=== PATIENT | female | born 1990 | race Hispanic/Latino ===

== ENCOUNTER 2022-02-15 14:03 | Emergency (ER) | payer SELFPAY ==
[2022-02-15] MEDS ORDERED: dexAMETHasone 10 MG/ML VIAL ONE (14:38)
[2022-02-15] MEDS ORDERED: DIPHENHYDRAMINE 50 MG/ML VIAL ONE (14:38)
[2022-02-15] MEDS ORDERED: NA CHLORIDE 0.9% 1,000 ML ONE (14:39)
[2022-02-15] MEDS ORDERED: FAMOTIDINE 20 MG/2 ML VIAL IV ONE (14:39)
--- NOTE | 2022-02-15 16:15 | EDPHYS ---
Physician Documentation [facility] Name: Brian Hamilton Age: 31 yrs Sex: Female : 1990 Arrival Date: 02/15/2022 Time: 14:04 Bed 9 Private MD: ED Physician Dillon Kwon HPI: 02/15 14:24 This 31 yrs old Female presents to ER via Unassigned with complaints of Rash, jmm Allergic Reaction. 14:24 Onset: The symptoms/episode began/occurred gradually. Associated signs and symptoms: jmm Pertinent negatives: swelling of lips, swelling of throat, swelling of tongue. This is a 31 year old female with no chronic medical conditions that presents to the ED with complaints of rash to her legs and face beginning approx 3 days ago. Patient states she was scraped by a plant while gardening 3 days ago. States she tried a new detergent for her bedding. Developed a rash to her legs and face the next day with clear drainage from the areas of her legs bilaterally. Denies pain. Denies swelling to her throat. Denies vomiting. . 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 - Social history:: Smoking status: Patient denies any tobacco usage or history of. ROS: 14:24 Constitutional: Negative for chills, fatigue, fever. jmm 14:24 Respiratory: Negative for shortness of breath. 14:24 Skin: Positive for rash. 14:24 All other systems are negative. Exam: 14:24 Constitutional: This is a well developed, well nourished patient who is awake, alert, jmm and in no acute distress. Head/Face: atraumatic. Eyes: EOMI, no conjunctival erythema appreciated ENT: Moist Mucus Membranes Neck: Trachea midline, Supple Chest/axilla: Normal chest wall appearance and motion. Cardiovascular: Regular rate and rhythm. No edema appreciated Respiratory: Normal respirations, no respiratory distress appreciated Abdomen/GI: Non distended Back: Normal ROM 14:24 Skin: hives noted to the thighs bilaterally. 2 pustules noted to the right thigh with surrounding erythema, non tender to palpation, some mild induration appreciated. Facial erythema noted diffusely. . 14:24 Neuro: Orientation: is normal, Mentation: is normal, Memory: is normal. 14:24 Psych: Behavior/mood is pleasant, cooperative. Vital Signs: 14:28 BP 120 / 84; Pulse 107; Resp 18; Temp 98.3; Pulse Ox 100% ; Weight 68 kg; Height 5 ft. kb3 6 in. (167.64 cm); Pain 0/10; 14:28 Body Mass Index 24.20 (68.00 kg, 167.64 cm) kb3 MDM: 14:20 Patient medically screened. [facility] 16:14 Data reviewed: vital signs, nurses notes. Counseling: I had a detailed discussion with lalo the patient and/or guardian regarding: the historical points, exam findings, and any diagnostic results supporting the discharge/admit diagnosis, the need for outpatient follow up, to return to the emergency department if symptoms worsen or persist or if there are any questions or concerns that arise at home. 02/15 14:34 Order name: Saline Lock; Complete Time: 14:48 [facility] Administered Medications: 14:48 Drug: Decadron (dexamethasone) 10 mg Route: IM; Site: Other; hb 14:48 Drug: NS 0.9% 1000 ml Route: IV; Rate: 1 bolus; Site: right antecubital; hb 14:48 Drug: diphenhydrAMINE 25 mg Route: IVP; Site: right antecubital; hb 14:48 Drug: Pepcid (famotidine) 20 mg Route: IVP; Site: right antecubital; hb Disposition: 14:32 Co-signature as Attending Physician, Dillon OROZCO was immediately available on-site ms3 in the Emergency Department for consultation in the care of the patient. Disposition Summary: 02/15/22 16:14 Discharge Ordered Location: Home [facility] Condition: Stable jmm Diagnosis - Rash and other nonspecific skin eruption jmm Followup: jmm - With: Private Physician - When: 2 - 3 days - Reason: Recheck today's complaints, Continuance of care, Re-evaluation by your physician Discharge Instructions: - Discharge Summary Sheet jm - Hives jmm - Rash, Adult [facility] Forms: - Medication Reconciliation Form [facility] - Thank You Letter [facility] - Antibiotic Education [facility] - Prescription Opioid Use [facility] Prescriptions: - Hydroxyzine HCl 25 mg Oral Tablet - take 1 tablet by ORAL route every 6 hours As needed; 30 tablet; Refills: 0, [facility] Product Selection Permitted - Prednisone 20 mg Oral Tablet - take 3 tablets by ORAL route once daily for 5 days; 15 tablet; Refills: 0, [facility] Product Selection Permitted - Doxycycline Hyclate 100 mg Oral Tablet - take 1 tablet by ORAL route every 12 hours; 20 tablet; Refills: 0, Product [facility] Selection Permitted Signatures: Liam Montiel PA PA jmm Baxter, Heather, MARY JANE RN Dillon Macias DO DO ms3 Marilee Barrera RN RN kb3
--- NOTE | 2022-02-15 16:15 | ER ---
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 Pt kb3 reports rash on face, arms and legs since yesterday. states she used a new laundry soap in her linens and everywhere that was not covered by pajamas is covered with rash. Coronavirus screen: Vaccine status: Patient reports receiving the 2nd dose of the covid vaccine. Client denies travel out of the [place] in the last 14 days. Ebola Screen: Patient negative for fever greater than or equal to 101.5 degrees Fahrenheit, and additional compatible Ebola Virus Disease symptoms Patient denies exposure to infectious person. Patient denies travel to an Ebola-affected area in the 21 days before illness onset. Onset: The symptoms/episode began/occurred suddenly, 1 day(s) ago. Anaphylaxis evaluation, no signs or symptoms of anaphylaxis were noted. Initial Sepsis Screen: Does the patient meet any 2 criteria? No. Patient's initial sepsis screen is negative. Does the patient have a suspected source of infection? No. Patient's initial sepsis screen is negative. Risk Assessment: Do you want to hurt yourself or someone else? Patient reports no desire to harm self or others. Onset of symptoms was February 14, 2022. 14:28 Method Of Arrival: Ambulatory kb3 14:28 Acuity: CHRISTOPHER 4 kb3 Triage Assessment: 14:31 General: Appears distressed, Behavior is calm, cooperative. Pain: Denies pain. Derm: kb3 Rash noted that is macular, papular, on face, left arm, right leg and left leg. 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 - Social history:: Smoking status: Patient denies any tobacco usage or history of. Screenin:35 Abuse screen: Denies threats or abuse. Denies injuries from another. Nutritional hb screening: No deficits noted. Tuberculosis screening: No symptoms or risk factors identified. Fall Risk None identified. Assessment: 15:00 General: Appears in no apparent distress. Behavior is calm, cooperative. Neuro: Level hb of Consciousness is awake, alert, obeys commands, Oriented to person, place, time, situation. Cardiovascular: Patient's skin is warm and dry. Respiratory: Airway is patent Respiratory effort is even, unlabored, Respiratory pattern is regular, symmetrical. GI: No signs and/or symptoms were reported involving the gastrointestinal system. : No signs and/or symptoms were reported regarding the genitourinary system. EENT: No signs and/or symptoms were reported regarding the EENT system. Derm: Skin is pink, warm \T\ dry. Rash noted that is macular, itchy, papular, red, on left leg and right leg and left arm and face. Musculoskeletal: No signs and/or symptoms reported regarding the musculoskeletal system. Vital Signs: 14:28 BP 120 / 84; Pulse 107; Resp 18; Temp 98.3; Pulse Ox 100% ; Weight 68 kg; Height 5 ft. kb3 6 in. (167.64 cm); Pain 0/10; 14:28 Body Mass Index 24.20 (68.00 kg, 167.64 cm) kb3 ED Course: 14:04 Patient arrived in ED. as 14:05 Liam Montiel PA is PHCP. [facility] 14:05 Dillon Kwon DO is Attending Physician. [facility] 14:31 Triage completed. kb3 14:31 Arm band placed on right wrist. Patient placed in an exam room. kb3 14:45 Inserted saline lock: 20 gauge in right antecubital area, using aseptic technique. hb 14:47 Yeimi Sorto, RN is Primary Nurse. hb 15:35 Patient has correct armband on for positive identification. hb 16:50 No provider procedures requiring assistance completed. intact, bleeding controlled, No hb redness/swelling at site. Administered Medications: 14:48 Drug: Decadron (dexamethasone) 10 mg Route: IM; Site: Other; hb 14:48 Drug: NS 0.9% 1000 ml Route: IV; Rate: 1 bolus; Site: right antecubital; hb 14:48 Drug: diphenhydrAMINE 25 mg Route: IVP; Site: right antecubital; hb 14:48 Drug: Pepcid (famotidine) 20 mg Route: IVP; Site: right antecubital; hb Medication: 15:35 VIS not applicable for this client. hb Outcome: 16:14 Discharge ordered by MD. may 16:50 Discharged to home ambulatory. hb 16:50 Condition: stable 16:50 Discharge instructions given to patient, Instructed on discharge instructions, follow up and referral plans. medication usage, Demonstrated understanding of instructions, follow-up care, medications, Prescriptions given X 3. 16:51 Patient left the ED. hb Signatures: Liam Montiel PA PA jmm Martinez, Amelia as Baxter, Heather, RN RN Marilee Barrera RN RN kb3 Corrections: (The following items were deleted from the chart) 16:51 16:50 Patient did not have IV access during this emergency room visit. hb hb
[2022-02-15 17:30] VITALS: BP 120/84; TEMP 98.3; O2SAT 100
== END 2022-02-15 16:51 | disposition home or self-care (01) ==
LOC: ER 14:03
DX: R21 Rash and other nonspecific skin eruption (principal)
CPT/HCPCS: 96372; 96374; 96375; 99283; J1100; J1200; J7030